=== PATIENT | female | born 1950 | race Caucasian/White ===

== ENCOUNTER 2017-08-15 13:40 | Emergency (ER) | payer BC, SELFPAY ==
[2017-08-15 13:40] VITALS: BP 136/71; PULSE 86; RESP 18; TEMP 36.8; O2SAT 98; BMI 22.0
--- NOTE | 2017-08-15 14:01 | ED.VISSUMM ---
- ER Visit Summary Date of Service: 08/15/17 Chief Complaint: Cough, fever, dehydration [] History of Present Illness: The patient is a 66 F [presents to the emergency department with symptoms that started about 8 days ago. Patient states that she thinks she had the influenza due to her symptoms of fever, cough, body aches, headache. Patient states that most of her flu symptoms have now resolved however she just feels nauseated and does not feel like she is drinking enough fluids. Patient states that this is pretty typical for her after a viral infection. Patient denies any abdominal pain or chest pain. Patient was seen in urgent care yesterday and had a chest x-ray that did not show anything acute. Patient denies any urinary symptoms.] Physical Examination: [HEENT-PERRLA, EOMI. Cranial nerves II through XII grossly intact. TMs clear. Mucous membranes dry. No adenopathy. Cardiovascular-regular rate and rhythm without murmur or ectopy Lungs-clear to auscultation, chest wall stable without crepitus or subcu emphysema Abdomen-normoactive bowel sounds, soft, nontender, no rebound or rigidity, no peritoneal signs. Extremities-intact ?4, normal range of motion, normal pulses, atraumatic] Test Results: [CBC with differential was normal. Chemistries were normal. Urinalysis showed 150 ketones otherwise nothing acute] Emergency Department Course and Treatment: [Received a liter normal same fluid bolus and formal grams of Zofran IV. Patient felt improved.] Treatment Plan: [Patient has Zofran at home but she does not feel like it is helping her and actually feels it may be making her nausea worse would like to try something different. I will start patient on Phenergan.] Disposition: [Discharged to home in stable condition.] Impression: [Nausea Mild dehydration] This note was generated with [employer] dictation software. It may contain incorrect words, spelling, and punctuation that were not noted in review of the chart prior to signing ED Disposition - Plan for ED Patient: Chief Complaint: General Illness Referrals: Adis Rodrigez III, MD [Primary Care Provider] -
[2017-08-15] MEDS: Ondansetron 4 MG/2 ML Vial IV (14:04)
[2017-08-15] MEDS: 0.9% Normal Saline 1,000 ML 1000 ML IV (14:04)
[2017-08-15 14:21] LABS: Absolute Lymphocyte Count 0.84 X10^3/ul (0.83-4.51); Absolute Neutrophil Count 3.8 X10^3/uL (2.0-7.7); Basophil# 0.03 X10^3/uL; Basophil% 0.6 % (0-1); Eosinophil# 0.01 X10^3/uL; Eosinophils% 0.2 % (0-5); Hematocrit 44.3 % (37-47); Lymphocyte # 0.84 X10^3/ul (4.0); Lymphocyte % 16.1 % (19-41); Mean Corp Hgb Conc 33.9 g/gl (32-36); Mean Corpuscular Volume 91.5 fL (81-99); Mean Platelet Vol. 11.7 fl (6.2-12.0); Monocyte# 0.56 X10^3/uL; Monocyte% 10.7 % (0-10); Neutrophil # 3.76 X10^3/uL (2.7-7.7); Neutrophil % 72.2 % (47-70); Platelet Count 172 K/mm3 (150-450); RBC Distribution Width CV 12.8 % (11.6-14.6); RBC Distribution Width SD 42.4 fl (35.1-43.9); Red Blood Count 4.84 M/mm3 (4.2-5.4); White Blood Count 5.2 K/mm3 (4.4-11.0)
[2017-08-15 14:22] LABS: POSITIVE COUNT NO; POSITIVE DIFFERENTIAL NO; POSITIVE MORPHOLOGY NO
[2017-08-15 14:27] LABS: Bacteria 0 SEEN /hpf (None Seen); Mucous, Urine 0 SEEN /hpf (<or=2+); Red Blood Cells-Urine 0 SEEN /hpf (0-5); Squamous Epithelial Cells - UA 0 SEEN /hpf (5-10); White Blood Cells 0 SEEN /hpf (0-5)
[2017-08-15 14:31] LABS: Anion Gap 9 (5-15); BUN 10 mg/dL (7-18); BUN/Creat Ratio 15.3 RATIO (10-20); Chloride 101 mmol/L (98-107); Creatinine, Serum 0.65 mg/dL (0.55-1.02); EST Glomerular Filtration Rate 96 mL/min (>60); Est Glom Filt Rate - Afr Amer 116 mL/min (>60); Estimated Creatinine Clearance 51.81 ml/min; Glucose 103 mg/dL (74-106); Potassium 3.8 mmol/L (3.5-5.1); Sodium Level 135 mmol/L (136-145)
[2017-08-15 14:32] LABS: Color, Urine Yellow (Yellow); Glucose, Dipstick Normal (Normal); Leukocyte Esterase-Dipstick Negative /ul (Negative); Nitrite-Dipstick Negative (Negative); Occult Blood-Urine Negative /ul (Negative); Protein-Dipstick Negative (Negative); Specific Gravity, Urine 1.015 (1.002-1.030); Urine Bilirubin Dipstick Negative (Negative); Urine Clarity Clear (Clear); Urine Urobilinogen Normal (Normal)
[2017-08-15 14:33] LABS: Ketone-Dipstick 150 mg/dl (Negative)
--- NOTE | 2017-08-15 14:52 | ED.DEP ---
ED Disposition - Plan for ED Patient: Chief Complaint: General Illness Instructions: ED Nausea Vomiting, Dehydration Prescriptions: ProMETHAzine [Phenergan] 25 mg PO Q6H PRN PRN #10 tab PRN Reason: Nausea Referrals: Adis Rodrigez III, MD [Primary Care Provider] - 3-5 Days
[2017-08-15 15:07] VITALS: BP 137/78; PULSE 72; RESP 19; O2SAT 99
--- NOTE | 2017-08-15 15:11 | ED.RN ---
THIS RN REVIEWED WRITTEN AND VERBAL DISCHARGE INSTRUCTIONS AND HOME GOING PRESCRIPTIONS WITH PT. PT VERBALIZES UNDERSTANDING AND VOICES NO FURTHER QUESTIONS. IV D/C AND COVERED WITH 2X2 GAUZE DRESSING. MINIMAL BLEEDING NOTED. PT DRESSES SELF AND IS AMBULATORY HOME WITH .
== END 2017-08-15 15:15 | disposition home or self-care (01) ==
LOC: ED 14:08
PROVIDERS: Emergency Provider Emergency Medicine; Family Provider Family Medicine; PCP Family Medicine
DX: J11.1 Influenza due to unidentified influenza virus with other respiratory manifestations (principal); E86.0 Dehydration
CPT/HCPCS: 80048; 81001; 85025; 96361; 96374; 99283; J2405